=== PATIENT | female | born 1930 | race Caucasian/White ===

== ENCOUNTER 2017-08-27 23:25 | Emergency (ER) | payer OTHER ==
[~2017-08-27] VITALS: Ht 142.2 cm; Wt 87.1 kg
[~2017-08-27 23:25] MED LIST: ASPIRIN81 M1 PO; CALCIUM + D 601 EACH PO; CENTRUM SILVER1 EACH PO; GLUCOPHAGE500 MG PO; IBUPROFEN600 MG PO; ISOPTIN SR240 M1 PO; OMEGA 3 1,0001 EACH PO; PRAVACHOL40 MG PO
[2017-08-28 00:33] LABS: BASOPHIL (%) 0.3 % (0-1); EOSINOPHIL (%) 0.8 % (0-5); HEMATOCRIT 29.9 % (36.0-46.0); HEMOGLOBIN 10.1 G/DL (11.9-15.5); IMMATURE GRANULOCYTE (%) 0.3 % (0.0-0.7); LYMPHOCYTE (%) 21.8 % (15-42); LYMPHOCYTE COUNT 0.8 K/uL (1.0-2.8); MCH 31.3 PG (29.0-34.0); MCHC 33.8 G/DL (30.0-36.0); MCV 92.6 FL (83-99); MONOCYTE (%) 6.8 % (3-12); MONOCYTE COUNT 0.2 K/uL (0-0.8); NEUTROPHIL COUNT 2.5 K/uL (1.8-6.4); PLATELET COUNT 122 K/uL (156-360); RBC DIS.WIDTH-CV 13.6 % (11.8-14.6); RBC DIS.WIDTH-SD 46.6 % (39-53); RED BLOOD COUNT 3.23 M/uL (3.80-5.20); WHITE BLOOD COUNT 3.5 K/uL (4.1-10.2)
[2017-08-28 00:47] LABS: ALBUMIN 3.4 g/dL (3.2-4.8); CHLORIDE 104 mEq/L (99-109); POTASSIUM 3.9 mEq/L (3.7-5.4); SODIUM 135 mEq/L (136-147)
[2017-08-28 00:49] LABS: GLUCOSE 147 mg/dL (70-99)
[2017-08-28 00:50] LABS: TOTAL PROTEIN 6.4 g/dL (6.4-8.3)
[2017-08-28 00:51] LABS: TOTAL BILIRUBIN 0.8 mg/dL (0.0-1.0)
[2017-08-28 00:53] LABS: ALKALINE PHOSPHATASE 69 IU/L (3-129); CREATININE 1.2 mg/dL (0.6-1.3); GFR ESTIMATE (CALCULATED) 45 mL/min/
[2017-08-28 00:54] LABS: TROP-I INTERPRETATION NEGATIVE; TROPONIN-I < 0.01 ng/mL (0.0-0.30); UREA NITROGEN (BUN) 22 mg/dL (9-23)
[2017-08-28 00:55] LABS: AST (GOT) 22 IU/L (2-34)
[2017-08-28 00:56] LABS: ALT (GPT) 10 IU/L (3-49)
[2017-08-28] MEDS ORDERED: ZITHROMAX Z-PA250 MG PO (01:15)
[2017-08-28] MEDS ORDERED: BENZONATATE200 MG PO (01:16)
[2017-08-28 03:48] VITALS: BP 128/55
== END 2017-08-28 03:50 ==
LOC: EME 23:25
PROVIDERS: Emergency Medicine
DX: J18.9 Pneumonia, unspecified organism (principal); R09.02 Hypoxemia; E78.5 Hyperlipidemia, unspecified; E11.9 Type 2 diabetes mellitus without complications; Z79.82 Long term (current) use of aspirin; Z88.6 Allergy status to analgesic agent
CPT/HCPCS: 71046; 80053; 83880; 84484; 85025 91; 93005; 94640; 99281; 99285

== ENCOUNTER → 2017-09-17 | Outpatient (CLI) | payer OTHER ==
[~2017-09-17] MED LIST changes: +BENZONATATE200 MG PO; +ZITHROMAX Z-PA250 MG PO
== END ==
LOC: RAD 09:00
DX: R13.10 Dysphagia, unspecified (principal); Z87.01 Personal history of pneumonia (recurrent)
CPT/HCPCS: 74230; 92611 GN; G8996 GN CI; G8997 GN CI; G8998 GN CI